=== PATIENT | male | born 1945 | race Caucasian/White ===

== ENCOUNTER → 2021-04-24 | Outpatient (CLI) | payer MEDICARE ==
[2021-04-24] VITALS (8 sets, daily range): BP systolic 101–148; BP diastolic 41–64
[~2021-04-24] MED LIST: AMLO10TA4 PO; AMOX1TAB58 PO; ASPI-630 PO; ATOR10TA PO; DOXY100C3 PO; FLUO10CA15 PO; FOLI0.8T3 PO; FURO80TA72 PO; LEVO500T59 PO; LISI20TA18 PO; METR500T PO; NYST100054 SWSW; SEVE800T9 PO; TERA2CAP3 PO
[2021-04-24 11:18] LABS: HEMOGLOBIN 5.3 g/dL (13.0-17.5)
[2021-04-24 11:19] LABS: HEMATOCRIT 15.7 % (39.0-53.0)
== END | disposition home or self-care (01) ==
LOC: OPS 09:36
PROVIDERS: ATTEND Internal Medicine Nephrology
DX: I12.0 Hypertensive chronic kidney disease with stage 5 chronic kidney disease or end stage renal disease (principal); N18.6 End stage renal disease; D63.1 Anemia in chronic kidney disease; E86.0 Dehydration; E87.5 Hyperkalemia; E78.5 Hyperlipidemia, unspecified; I25.2 Old myocardial infarction; R55 Syncope and collapse; K21.9 Gastro-esophageal reflux disease without esophagitis; F32.9 Major depressive disorder, single episode, unspecified; Z99.2 Dependence on renal dialysis; Z79.899 Other long term (current) drug therapy; Z87.891 Personal history of nicotine dependence
CPT/HCPCS: 36415; 36430; 85014; 85018; 86850; 86900; 86901; 86920; P9016